=== PATIENT | female | born 1990 | race Caucasian/White ===

== ENCOUNTER → 2017-07-03 | Outpatient (CLI) | payer BC ==
[~2017-07-03] MED LIST: ACET-1256 PO; METR500T PO; PRENTAB26 PO
[2017-07-03 18:31] LABS: URINE APPEARANCE CLEAR (CLEAR); URINE BILIRUBIN NEG (NEG); URINE COLOR YELLOW; URINE NITRITE NEG (NEG); URINE SPECIFIC GRAVITY 1.012 (1.000-1.030); UROBILINOGEN NEG (NEG)
[2017-07-03 18:42] LABS: MANUAL MICROSCOPIC REQUIRED? NO; REVIEW REQ? NO
== END | disposition home or self-care (01) ==
LOC: C.LABSPEC 17:29
PROVIDERS: ATTEND Obstetrics & Gynecology
DX: Z34.01 Encounter for supervision of normal first pregnancy, first trimester (principal)

== ENCOUNTER → 2017-07-07 | Outpatient (CLI) | payer BC ==
[2017-07-07 17:24] LABS: BASO % 0.2 %; BASO ABS # 0.02 K/uL (0-0.2); COMPLETE YES; EOS % 0.4 %; HEMATOCRIT 39.5 % (37-47); IG% 0.3 %; LYMPH % 28.5 %; LYMPH ABS # 3.04 K/uL (1.2-3.4); MEAN CELL VOLUME 88.8 fL (80-100); MEAN CORPUSCULAR HEMOGLOBIN 31.7 pg (25-34); MEAN CORPUSCULAR HGB CONC 35.7 g/dl (32-36); MEAN PLATELET VOLUME 9.1 fL (7.4-10.4); MONO % 6.8 %; NEUT % 63.8 %; PLATELET COUNT 211 K/uL (130-400); RED BLOOD COUNT 4.45 M/uL (4.2-5.4); WHITE BLOOD COUNT 10.68 K/uL (4.8-10.8)
== END | disposition home or self-care (01) ==
LOC: C.LAB1850 16:21
PROVIDERS: ATTEND Obstetrics & Gynecology
DX: Z34.01 Encounter for supervision of normal first pregnancy, first trimester (principal)

== ENCOUNTER 2017-07-10 08:43 | Day surgery (SDC) | payer BC ==
[~2017-07-10] VITALS: Ht 165.1 cm; Wt 54.5 kg
[~2017-07-10 08:43] MED LIST changes: +LACTATED RINGER'S 1000ML 1,000 ML IV SCH; -METR500T PO
[2017-07-10 09:12] VITALS: BP 109/76; PULSE 90; TEMP 37.1; O2SAT 100; Ht 165.1 cm; Wt 54.5 kg
[2017-07-10] MEDS ORDERED: METR500T PO (09:18)
--- NOTE | 2017-07-10 09:19 | History & Physical Bridge Note ---
H&P Re-Evaluation Bridge Note: I have examined the patient, reviewed the History & Physical and in the interval since the performance of the History & Physical I have noted the following changes of clinical significance: No changes noted
[2017-07-10] MEDS ORDERED: DOXYCYCLINE HYCLATE 100 MG CAP PO ONE (09:41)
[2017-07-10] MEDS ORDERED: DOXYCYCLINE HYCLATE 100 MG CAP PO SCH (10:00)
[2017-07-10] MEDS ORDERED: ONDANSETRON INJ 2 MG/ML 2 ML VIAL ONE (10:11)
[2017-07-10] MEDS ORDERED: LIDOCAINE HCL 2% 2 ML VIAL (20MG/ML) ONE (10:11)
[2017-07-10] MEDS ORDERED: DEXAMETHASONE SOD INJ 4 MG/ML VIAL ONE (10:11)
[2017-07-10] MEDS ORDERED: PROPOFOL IV EMULSION 10 MG/ML 20 ML VIAL IV ONE (10:11)
[2017-07-10] MEDS ORDERED: FENTANYL CITRATE INJ 50 MCG/1 ML 2 ML VIAL ONE (10:11)
[2017-07-10] MEDS ORDERED: MIDAZOLAM HCL 1 MG/ML 2ML VIAL ONE (10:12)
[2017-07-10] MEDS ORDERED: ONDANSETRON INJ 2 MG/ML 2 ML VIAL IV PRN ×2 (11:15→11:30)
[2017-07-10] MEDS ORDERED: EpHEDrine SULFATE INJ 50 MG/ML AMP IV PRN (11:15)
[2017-07-10] MEDS ORDERED: ATROPINE SULFATE 0.1 MG/ML 5ML SYR IV PRN (11:15)
[2017-07-10] MEDS ORDERED: FENTANYL CITRATE INJ 50 MCG/1 ML 2 ML VIAL IV PRN (11:15)
[2017-07-10] MEDS ORDERED: SODIUM CHLORIDE 0.9% 1000ML 1,000 ML IV SCH (11:27)
[2017-07-10] MEDS ORDERED: PROMETHAZINE HCL INJ 25 MG in SODIUM CHLORIDE 0.9% 50ML 50 ML IV PRN (11:30)
[2017-07-10] MEDS ORDERED: KETOROLAC TROMETHAMINE 30 MG/ML VIAL IV. PRN (11:30)
[2017-07-10] MEDS ORDERED: OXYCODONE/ACETAMINOPHEN 5-325 TAB PO PRN ×2 (11:30)
[2017-07-10] MEDS ORDERED: DOXYCYCLINE HYCLATE 100 MG CAP PO STA (11:31)
--- NOTE | 2017-07-10 11:31 | [facility] Post Operative Brief Note ---
Immediate Operative Summary Operative Date Jul 10, 2017. Pre-Operative Diagnosis Missed Post-Operative Diagnosis Missed Procedure(s) Performed Ultrasound guided Dilation and Evacuation Surgeon Dr. Dayami Stevens Postbed Stitcher Surgeon(s) None Estimated Blood Loss 200ml Findings Ultrasound shows IUP with no FHT. Upon completion of procedure, uterus empty. Specimens Specimen A. Products of Conception Drains bladder emptied prior to procedure Anesthesia general Complication(s) None Disposition Recovery Room / PACU
--- NOTE | 2017-07-10 11:38 | DIAGNOSTIC IMAGING REPORT ---
INTRAOPERATIVE PELVIC ULTRASOUND FOR GUIDANCE CLINICAL HISTORY: Missed COMPARISON STUDY: None. FINDINGS: Intraoperative pelvic ultrasound guidance provided for a dilatation and evacuation. Initial images demonstrate an intrauterine gestation. No heart rate was identified. Postoperative images demonstrate evacuation of the intrauterine gestation. IMPRESSION: Intraoperative pelvic guidance provided for dilatation and evacuation.. Electronically signed by: Eliu Concepcion M.D. 07/10/2017 11:36 AM Dictated Date/Time: 07/10/2017 11:34 AM
--- NOTE | 2017-07-10 11:46 | Discharge Instructions ---
Discharge Instructions Date of Service Jul 10, 2017. Visit Reason for Visit: Missed Discharge Discharge Diagnosis / Problem: missed Discharge Goals Goal(s): Therapeutic intervention Activity Recommendations Activity Limitations: per Instructions/Follow-up section Anesthesia . Post Anesthesia Instructions: If you have had General Anesthesia or IV Sedation: * Do not drive today. * Resume driving when surgeon permits. * Do not make important decisions or sign legal documents today. * Call surgeon for: 1. Temperature elevations greater than 101 degrees F. 2. Uncontrollable pain. 3. Excessive bleeding. 4. Persistent nausea and vomiting. 5. Medication intolerance (nausea, vomiting or rash). * For nausea and vomiting use only clear liquids such as: tea, soda, bouillon until nausea subsides, then gradually increase diet as tolerated. * If you have any concerns or questions, call your surgeon's office. If physician is unavailable and it is an emergency, call 911 or go to the nearest emergency room. . Instructions / Follow-Up Instructions / Follow-Up ACTIVITY RECOMMENDATIONS: * Avoid tampons, douching, hot tubs, pools, and intercourse until bleeding has stopped. * May shower as usual. * No strenuous activity for 24-48 hours. After 24-48 hours, you may do anything you feel like doing (driving and sports are okay). SPECIAL CARE INSTRUCTIONS: Special Diet: * Mild nausea may occur in the immediate post-operative period. * Take clear liquids such as tea, cola or bouillon until all nausea has subsided; you may then resume your normal diet. Special Care: * Light bleeding and vaginal spotting can last from a few days to 3-4 weeks. Call your doctor if bleeding becomes heavier than the heaviest part of your period. * Check your temperature twice a day for one week. If it goes above 100.4 degrees Fahrenheit (38.0 Celsius), notify your doctor. * Call your doctor's office for an appointment for 6 weeks after your surgery. FOLLOW-UP VISIT: Call your doctor's office for an appointment for 6 weeks after your surgery. Diet Recommendations Recommended Home Diet: resume previous diet Procedures Procedures Performed: Ultrasound guided Dilation and Evacuation Pending Studies Studies pending at discharge: no Medical Emergencies . Who to Call and When: Medical Emergencies: If at any time you feel your situation is an emergency, please call 911 immediately. . Non-Emergent Contact Non-Emergency issues call your: Primary Care Provider, Workshop Manager . . "Provider Documentation" section prepared by Dayami Stevens. .
--- NOTE | 2017-07-10 11:57 | OPERATIVE REPORT ---
DATE OF OPERATION: 07/10/2017 PREOPERATIVE DIAGNOSIS: Missed . POSTOPERATIVE DIAGNOSIS: Same. PROCEDURE PERFORMED: Ultrasound guided dilation and evacuation. SURGEON: Dayami Stevens DO REPORTING SPECIALIST: None. ESTIMATED BLOOD LOSS: 200 mL. FINDINGS: Ultrasound shows intrauterine with no heart tones. Upon completion of procedure, the uterus was empty by ultrasound. SPECIMENS: Products of conception. DRAINS: Bladder emptied prior to procedure. ANESTHESIA: General. COMPLICATIONS: None. DISPOSITION: Stable and good to recovery area. INDICATIONS FOR PROCEDURE: The patient is a 26-year-old G1, P0, who presented to the office for her new OB visit. She had had slight brown spotting, but no gregorio vaginal bleeding on ultrasound at her initial visit. She was by dates approximately 10 weeks, but ultrasound showed an 8-week intrauterine with no heart activity. She elected to undergo dilation and evacuation. DESCRIPTION OF PROCEDURE: The patient was seen in the preoperative holding area, where risks, benefits, and alternatives to surgery were reviewed. She elected to proceed with surgery. 100 mg of p.o. doxycycline was given preoperatively as antibiotic prophylaxis per ACOG guideline. She was then taken to the operating room. General anesthesia was introduced. She was prepared and draped in the usual sterile fashion in the dorsal lithotomy position with feet in candy cane stirrups. Timeout was confirmed. Bladder was drained. Weighted speculum was placed in the vagina. The cervix was visualized and the anterior lip was grasped with single tooth tenaculum. Ultrasound showed the above findings. The cervix was then gently dilated with dilators to admit a 10-mm suction cannula. The evacuation of the contents of the uterus was then performed using suction at 60 mmHg. Multiple passes were made. A gentle pass with a sharp curette was performed and subsequent ultrasound revealed no remaining products of conception in the intrauterine cavity. Excellent hemostasis was observed. All instruments were removed from the vagina. The patient was taken to the postoperative recovery area. She was given 200 mg of doxycycline postoperatively for continued antibiotic prophylaxis and received a prescription for 500 mg of Flagyl p.o. b.i.d. x5 days. She will also receive RhoGAM in the postoperative area as she is Rh negative status. The patient tolerated the procedure well and went to the recovery area in stable and good condition. I attest to the content of the Intraoperative Record and any orders documented therein. Any exceptions are noted below. MTDD
--- NOTE | 2017-07-10 12:10 | Anesthesiology Progress Note ---
Anesthesia Post Op Note Date & Time Jul 10, 2017 at 12:09 Vital Signs Pain Intensity: 2 Vital Signs Past 12 Hours Date Time Temp Pulse Resp B/P (MAP) Pulse Ox O2 Delivery O2 Flow Rate FiO2 07/10/17 12:00 68 15 104/68 99 Room Air 07/10/17 11:50 67 17 105/73 99 Room Air 07/10/17 11:40 69 16 109/80 100 Oxymask 10 07/10/17 11:30 36.0 90 16 112/71 100 Oxymask 10 07/10/17 09:12 37.1 90 18 109/76 (87) 100 Room Air Notes Mental Status: alert / awake / arousable, participated in evaluation Pt Amnestic to Procedure: Yes Nausea / Vomiting: adequately controlled Pain: adequately controlled Airway Patency, RR, SpO2: stable & adequate BP & HR: stable & adequate Hydration State: stable & adequate Anesthetic Complications: no major complications apparent
[2017-07-10 12:18] VITALS: BP 103/69; PULSE 69; TEMP 37; O2SAT 100
[2017-07-10] MEDS ORDERED: METHYLERGONOVINE MALEATE 0.2 MG/ML AMP ONE (12:39)
[2017-07-10 12:48] VITALS: BP 101/60; PULSE 70; TEMP 36.8; O2SAT 100
[2017-07-10 13:18] VITALS: BP 113/63; PULSE 70; TEMP 36.8; O2SAT 100
== END 2017-07-10 13:24 | disposition home or self-care (01) ==
LOC: C.ACU 08:43
PROVIDERS: ATTEND Obstetrics & Gynecology
DX: O02.1 Missed abortion (principal)

== ENCOUNTER → 2017-11-16 | Outpatient (CLI) | payer BC ==
[~2017-11-16] MED LIST changes: -LACTATED RINGER'S 1000ML 1,000 ML IV SCH
== END | disposition home or self-care (01) ==
LOC: C.LABSPEC 17:38
PROVIDERS: ATTEND Obstetrics & Gynecology
DX: O09.291 Supervision of pregnancy with other poor reproductive or obstetric history, first trimester (principal)

== ENCOUNTER → 2017-11-23 | Outpatient (CLI) | payer BC ==
[2017-11-23 09:43] LABS: BASO % 0.1 %; BASO ABS # 0.01 K/uL (0-0.2); EOS % 0.3 %; EOS ABS # 0.02 K/uL (0-0.5); HEMATOCRIT 38.8 % (37-47); IG# 0.01 K/uL (0.00-0.02); LYMPH % 27.8 %; LYMPH ABS # 2.11 K/uL (1.2-3.4); MEAN CELL VOLUME 88.2 fL (80-100); MEAN CORPUSCULAR HEMOGLOBIN 31.8 pg (25-34); MEAN CORPUSCULAR HGB CONC 36.1 g/dl (32-36); MEAN PLATELET VOLUME 9.1 fL (7.4-10.4); MONO % 6.1 %; MONO ABS # 0.46 K/uL (0.11-0.59); NEUT % 65.6 %; NEUT ABS # 4.97 K/uL (1.4-6.5); PLATELET COUNT 214 K/uL (130-400); RED CELL DISTRIBUTION WIDTH CV 12.6 % (11.5-14.5); RED CELL DISTRIBUTION WIDTH SD 40.6 fL (36.4-46.3); WHITE BLOOD COUNT 7.58 K/uL (4.8-10.8)
== END | disposition home or self-care (01) ==
LOC: C.LAB1850 08:53
PROVIDERS: ATTEND Obstetrics & Gynecology
DX: O09.291 Supervision of pregnancy with other poor reproductive or obstetric history, first trimester (principal)

== ENCOUNTER → 2018-01-18 | Outpatient (CLI) | payer BC | END | disposition home or self-care (01) | LOC: C.LAB1850 16:13 | PROVIDERS: ATTEND Obstetrics & Gynecology | DX: O09.292 Supervision of pregnancy with other poor reproductive or obstetric history, second trimester (principal); Z3A.00 Weeks of gestation of pregnancy not specified ==

== ENCOUNTER → 2018-01-30 | Outpatient (CLI) | payer BC | END | disposition home or self-care (01) | LOC: C.LAB1850 07:46 | PROVIDERS: ATTEND Obstetrics & Gynecology | DX: O28.1 Abnormal biochemical finding on antenatal screening of mother (principal); Z3A.00 Weeks of gestation of pregnancy not specified ==

== ENCOUNTER → 2018-04-15 | Outpatient (CLI) | payer BC | END | disposition home or self-care (01) | LOC: C.LAB1850 09:30 | PROVIDERS: ATTEND Obstetrics & Gynecology | DX: O09.292 Supervision of pregnancy with other poor reproductive or obstetric history, second trimester (principal) ==

== ENCOUNTER 2022-10-02 07:37 | Inpatient (IN) ==
[2022-10-02] MEDS ORDERED: DIPHTHERIA/TETANUS/PERTUSSIS 0.5mL SYR/VIAL (Age 7+yrs) IM ONE ×2 (07:55→18:02)
[2022-10-02] MEDS ORDERED: bisacodyL 10 MG SUPP PR PRN ×2 (07:55→18:02)
[2022-10-02] MEDS ORDERED: ACETAMINOPHEN 325 MG TAB PO PRN ×2 (07:55→18:02)
[2022-10-02] MEDS ORDERED: HYDROCORTISONE ACETATE 25 MG SUPP PR PRN ×2 (07:55→18:02)
[2022-10-02] MEDS ORDERED: OXYTOCIN 30 UNITS/500 ML BAG IV PRN ×4 (07:55→18:02)
[2022-10-02] MEDS ORDERED: IBUPROFEN 600 MG TAB PO PRN (07:55)
[2022-10-02] MEDS ORDERED: LIDOCAINE 1% LOCAL 20 ML VIAL INFIL PRN (07:55)
[2022-10-02] MEDS ORDERED: BENZOCAINE 20% AER SPR 82.5 GM CAN EXT PRN ×2 (07:55→18:02)
[2022-10-02] MEDS ORDERED: DOCUSATE SODIUM 100 MG CAP PO SCH (08:00)
[2022-10-02] MEDS ORDERED: PRENATAL VITAMIN 1 TAB PO SCH (08:00)
--- NOTE | 2022-10-02 08:09 | History & Physical Report ---
Date of Service October 02, 2022 Assessment & Plan (1) Polyhydramnios affecting : (2) Elective induction of labor planned: Plan: 32 y/o female here for IOL d/t polyhydramnios. GBS+, RI, B neg. +FM. Few contractions, no loss of fluid, no bleeding. No calf pain. Epidural when/if desired. Start pit when indicated. c/b previous ppx pre-eclampsia, on ASA, monitor BPs Last pap 02/2020 No STD hx Admission and Anticipated Discharge Date Admission Date: October 02, 2022 History of Present Illness Chief Complaint: IOL poly Primary Care Provider: Nasir Martinez MD 32 y/o female here for IOL d/t polyhydramnios. GBS+, RI, B neg. +FM. Few contractions, no loss of fluid, no bleeding. No calf pain. c/b previous ppx pre-eclampsia, on ASA Last pap 02/2020 No STD hx Allergies Allergy/AdvReac Type Severity Reaction Status Date / Time No Known Drug Allergies Allergy NONE Verified 10/02/22 09:53 Home Medications Medication Instructions Recorded Confirmed Type docusate sodium 100 mg capsule 100 mg PO DAILY 02/28/22 10/02/22 History (Colace) acetone (urine) test (Ketone Urine #50 ea 03/03/22 10/01/22 Rx Test strips) blood sugar diagnostic (OneTouch #150 ea 03/03/22 10/01/22 Rx Verio test strips) blood-glucose meter (OneTouch #1 ea 03/03/22 10/01/22 Rx Verio Flex Meter) lancets 33 gauge (OneTouch Delica #150 ea 03/03/22 10/01/22 Rx Plus Lancet) aspirin 81 mg capsule 81 mg PO DAILY 10/02/22 10/02/22 History prenat.vits,amelia,[id number] 1 tab PO DAILY 10/02/22 10/02/22 History Patient History Medical History (Updated 10/02/22 @ 08:42 by Luna Adams MD) Anemia Encounter for visit GERD (gastroesophageal reflux disease) Gestational diabetes mellitus (GDM), Oral contraceptive prescribed Pre-eclampsia, mild, Preeclampsia in period Surgical History History of wisdom tooth extraction Hx of dilation and curettage Family History Mother Depression Endometriosis Grandfather (Paternal) Diabetes Grandmother Breast cancer Social History Smoking Status: Never smoker Second Hand Exposure: No; Hx Alcohol Use: No Hx Substance Use: No Preferred Language: Japanese Communication Ability: Effective Formula Room Worker Required: No Beliefs That Will Affect Care: Mosque Mosque Beliefs: Nondenominational marital status: marital status details: Andrew (35) [phone] Current Living Situation: Spouse and Family Current Living Situation Comment: Son 4 yo current occupational status: employed current occupation: Mainframe Programmer. Feels Safe at Home: Yes Assistive Devices: Glasses Review of Systems All systems reviewed & are unremarkable except as noted in HPI & below Physical Exam Constitutional: WD/WN, vitals as above Respiratory: normal respiratory effort, lungs clear to auscultation Cardiovascular: RRR, no murmur, no edema Extremities: no calf tenderness Psychiatric: A+Ox3, euthymic affect Genitourinary: OB Exam Abdomen: + vertex, + estimated weight (6-7 pounds) and + irregular contractions Manual OB Exam: + cervical dilation 4 cm, + cervical effacement 70% and + station -2 OB Exam Monitor Tracing: + external FHT monitor used, + external uterine monitor used, + category I and + normal FHT variability Results & Data ([facility]) Vital Signs (Past 12 Hours) Vital Signs Temp Pulse Resp BP 10/02/22 08:01 102 H 113/77 10/02/22 07:58 16 10/02/22 07:58 36.8 C 16 Supervising Physician Co-Signing Physician Notes Resident Physician Supervision Note: I interviewed and examined the patient. Discussed with Dr. Adams and agree with findings and plan as documented in the note. Any exceptions or clarifications are listed here: [None] Documented By: Didi Barnes MD, FACOG Resident Activity Tracking Resident Involvement: Resident Care Provided Care Provided: OB Delivery
[2022-10-02] MEDS ORDERED: PENICILLIN G POTASSIUM 6 MU in DEXTROSE 5% 250 ML IV STA (08:29)
[2022-10-02 08:46] LABS: Hemoglobin 12.9 g/dl (12.0-16.0); Mean Corpuscular Hgb Conc 35.8 g/dL (32.0-36.0); Mean Corpuscular Volume 92.1 fL (80.0-100.0); Mean Platelet Volume 9.7 fL (9.4-12.3); Platelet Count 152 K/uL (130-400); RDW Coefficient of Variation 12.7 % (11.5-14.5); RDW Standard Deviation 42.2 fL (36.4-46.3); Red Blood Count 3.91 M/uL (3.93-5.22); White Blood Count 11.19 K/ul (4.8-10.8)
[2022-10-02] MEDS: LACTATED RINGER'S 1,000 ML IV PRN ×2 (09:00→13:45)
[2022-10-02] MEDS: PENICILLIN G POTASSIUM 3 MU in DEXTROSE 5% 100 ML IV PRN ×2 (13:11→17:32)
[2022-10-02] MEDS ORDERED: ePHEDrine sulfate 50 MG/ML AMP ONE (13:21)
[2022-10-02] MEDS ORDERED: fentaNYL 2MCG/ML ROPIVACAINE 1.25MG/ML 100 ML BAG EPI ONE (13:22)
[2022-10-02] MEDS ORDERED: BUPIVACAINE 0.25% 30 ML VIAL ONE (13:22)
[2022-10-02] MEDS ORDERED: fentaNYL citrate 100 MCG/2 ML VIAL ONE (13:22)
[2022-10-02] MEDS ORDERED: LIDOCAINE 2%/EPINEPHRINE 1:200,000 20 ML SDV ONE (13:22)
[2022-10-02] MEDS ORDERED: SODIUM CHLORIDE 0.9% INJ 10 ML VIAL ONE (13:22)
[2022-10-02] MEDS ORDERED: ePHEDrine sulfate 50 MG/ML AMP IV PRN (13:35)
[2022-10-02] MEDS ORDERED: fentaNYL 2MCG/ML ROPIVACAINE 1.25MG/ML 100 ML BAG EPI PRN (13:35)
[2022-10-02] MEDS ORDERED: NALOXONE HCL 0.4 MG/1 ML VIAL/CARP IV PRN (13:35)
[2022-10-02] MEDS ORDERED: ONDANSETRON INJ 2 MG/ML 2 ML VIAL IV PRN (13:35)
[2022-10-02] MEDS ORDERED: NALBUPHINE HCL INJ 10 MG/ML AMP IV PRN (13:35)
[2022-10-02] MEDS ORDERED: diphenhydrAMINE 50 MG/ML VIAL IV PRN (13:35)
[2022-10-02] MEDS ORDERED: NALOXONE HCL 1 MG in SODIUM CHLORIDE 0.9% 1000ML 1,000 ML IV PRN (13:35)
--- NOTE | 2022-10-02 13:35 | Anesthesiology Consultation ---
Date of Service October 02, 2022 Assessment & Plan ASA ASA2 Proposed Anesthesia Anesthesia Type: Labor Epidural Risk / Benefits Reviewed With: PT / POA / Parent / Guardian, Accepts Plan and Informed Consent Obtained History Height/Weight Height: 5 ft 5 in Weight: 65.771 kg Allergies Allergy/AdvReac Type Severity Reaction Status Date / Time No Known Drug Allergies Allergy NONE Verified 10/02/22 09:53 Medications Home Medications Medication Instructions Recorded Confirmed Last Taken docusate sodium 100 mg capsule 100 mg PO DAILY 02/28/22 10/02/22 10/02/22 (Colace) acetone (urine) test (Ketone Urine #50 ea 03/03/22 10/01/22 Unknown Test strips) blood sugar diagnostic (OneTouch #150 ea 03/03/22 10/01/22 Unknown Verio test strips) blood-glucose meter (OneTouch #1 ea 03/03/22 10/01/22 Unknown Verio Flex Meter) lancets 33 gauge (OneTouch Delica #150 ea 03/03/22 10/01/22 Unknown Plus Lancet) aspirin 81 mg capsule 81 mg PO DAILY 10/02/22 10/02/22 10/02/22 prenat.vits,amelia,[id number] 1 tab PO DAILY 10/02/22 10/02/22 10/02/22 Active Medications Generic Name Dose Route Start Last Admin Trade Name Freq PRN Reason Stop Dose Admin Docusate Sodium 100 mg 10/02/22 08:00 10/02/22 11:53 Docusate Sodium 100 Mg Cap PO 11/01/22 07:59 Not Given DAILY@, [facility] Lactated Ringer's 1,000 mls @ 125 mls/hr 10/02/22 07:55 10/02/22 13:15 Lr IV 10/04/22 07:54 999 mls/hr .Q8H PRN Infusion L&D Protocol Protocol Penicillin G Potassium 3 mu/ 106 mls @ 100 mls/hr 10/02/22 10:55 10/02/22 13:11 Dextrose IV 10/12/22 10:54 100 mls/hr Q4H PRN Administration GBS(+) Until Delivery Oxytocin 30 units in 500 mls @ 9 mls/hr 10/02/22 08:01 10/02/22 12:07 Pitocin IV 10/04/22 08:00 0.54 units/hr .Q24H PRN 9 mls/hr Labor Induction/Augmentation Titration Protocol 0.54 UNITS/HR Prenat Multivit/[place]/Iron/Folic Ac 1 tab 10/02/22 08:00 10/02/22 11:53 Vitamin 1 Tab PO 11/01/22 07:59 Not Given DAILY@08 FROYLAN Ropivacaine 100 ml 10/02/22 13:35 10/02/22 14:27 Fentanyl 2mcg/Ml Ropivacaine 1.25mg/Ml 100 Ml Bag EPI 10/03/22 13:34 100 ml PRN PRN Administration Pain R/T Labor Protocol Past Medical History Medical History Anemia Encounter for visit GERD (gastroesophageal reflux disease) Gestational diabetes mellitus (GDM), Oral contraceptive prescribed Pre-eclampsia, mild, Preeclampsia in period Exercise / Class Metabolic Activity II 4-5 Yardwork/Stairs/Walk up hill Past Family History Family History Mother Depression Endometriosis Grandfather (Paternal) Diabetes Grandmother Breast cancer maternal great GM Past Surgical History Surgical History History of wisdom tooth extraction Hx of dilation and curettage Past Anesthesia History No Hx of Anesthesia Complications and No Family Hx of Anesthesia Complications History of PONV No Hx of PONV and No Hx of Motion Sickness Social History Smoking Status: Never smoker Hx Alcohol Use: No Hx Substance Use: No Review of Systems denies fever/cough/ colds/ chest pain/ SOB/ CHAYA denies CHAYA Physical Exam Vital Signs Last Vital Signs Temp 36.9 C 10/02/22 13:40 Pulse 90 10/02/22 14:51 Resp 18 10/02/22 13:40 BP 108/69 10/02/22 14:51 Pulse Ox 97 10/02/22 14:47 ENMT Mouth: no TMJ abnormality and no dentition abnormality Thyromental Distance: > or= 3.5 Finger Breadths Mallampati Class: II Neck neck extension not limited Respiratory normal respiratory effort; no respiratory distress Auscultation: lungs clear to auscultation bilaterally Cardiovascular Rate/Rhythm: regular rate and regular rhythm Neurologic moves all extremities Psychiatric Orientation: alert and oriented x 3 Testing Laboratory Results 10/02/22 08:26 10/02/22 10:16 POC Glucose 108 H
--- NOTE | 2022-10-02 18:42 | Anesthesiology Progress Note ---
Date of Service October 02, 2022 Anesthesia Post Procedure Vital Signs Vital Signs: Temp Pulse Resp BP Pulse Ox 10/02/22 18:20 18 10/02/22 18:05 18 10/02/22 17:50 16 10/02/22 18:36 93 H 120/72 10/02/22 18:21 96 H 117/71 10/02/22 17:30 16 10/02/22 17:30 16 10/02/22 17:10 18 10/02/22 17:10 18 10/02/22 18:06 82 118/67 10/02/22 17:52 101 H 131/64 10/02/22 17:47 106 H 98 10/02/22 17:42 92 H 98 10/02/22 17:37 77 99 10/02/22 17:36 106 H 117/78 10/02/22 17:32 93 H 99 10/02/22 17:27 83 99 10/02/22 17:22 99 10/02/22 17:22 90 10/02/22 17:22 85 117/70 10/02/22 17:17 83 99 10/02/22 17:04 18 10/02/22 17:04 18 10/02/22 17:12 91 H 99 10/02/22 17:07 100 10/02/22 17:07 89 10/02/22 17:07 90 125/75 10/02/22 17:02 89 100 10/02/22 16:57 96 H 100 10/02/22 16:40 16 10/02/22 16:40 16 10/02/22 16:52 99 10/02/22 16:52 77 10/02/22 16:52 75 104/64 10/02/22 16:47 81 99 10/02/22 16:40 16 10/02/22 16:40 16 10/02/22 16:42 75 99 10/02/22 16:37 86 99 10/02/22 15:40 16 10/02/22 15:40 16 10/02/22 16:36 79 109/62 10/02/22 16:10 16 10/02/22 16:10 16 10/02/22 16:32 80 99 10/02/22 16:27 78 99 10/02/22 16:22 73 100/58 L 99 10/02/22 16:17 79 100 10/02/22 16:12 81 98 10/02/22 16:07 81 98 10/02/22 16:06 85 120/76 10/02/22 16:02 83 100 10/02/22 15:57 77 99 10/02/22 15:52 77 98 10/02/22 15:53 73 118/77 10/02/22 15:47 72 98 10/02/22 15:42 76 98 10/02/22 15:37 73 97 10/02/22 15:36 72 110/72 10/02/22 15:32 74 97 10/02/22 15:27 75 98 10/02/22 15:22 98 10/02/22 15:22 71 10/02/22 15:22 69 113/76 10/02/22 15:00 16 10/02/22 15:00 36.9 C 16 10/02/22 15:21 80 113/78 10/02/22 15:17 83 98 10/02/22 15:10 16 10/02/22 15:10 16 10/02/22 14:40 18 10/02/22 14:40 18 10/02/22 14:10 18 10/02/22 14:10 18 10/02/22 15:12 83 98 10/02/22 15:08 85 125/80 10/02/22 15:07 79 99 10/02/22 15:02 84 99 10/02/22 14:57 96 H 98 10/02/22 14:52 85 99 10/02/22 14:51 90 108/69 10/02/22 14:47 97 10/02/22 14:47 84 10/02/22 14:47 110 H 114/74 10/02/22 14:42 89 98 10/02/22 14:41 88 105/66 10/02/22 14:37 82 98 10/02/22 14:35 84 112/65 10/02/22 14:32 107 H 98 10/02/22 14:33 103 H 108/71 10/02/22 14:31 86 105/63 10/02/22 14:29 91 H 106/64 10/02/22 14:27 95 H 97 10/02/22 14:26 91 H 100/61 10/02/22 14:24 98 H 111/68 10/02/22 14:23 95 H 111/69 10/02/22 14:22 93 H 98 10/02/22 14:19 106 H 130/77 10/02/22 14:17 97 H 98 10/02/22 14:12 100 H 98 10/02/22 14:07 103 H 98 10/02/22 14:02 83 98 10/02/22 13:57 89 98 10/02/22 13:52 89 97 10/02/22 13:10 18 10/02/22 13:10 18 10/02/22 13:47 83 98 10/02/22 13:42 88 99 10/02/22 13:40 18 10/02/22 13:40 36.9 C 18 10/02/22 13:37 84 99 10/02/22 13:32 98 H 100 10/02/22 13:27 89 99 10/02/22 13:22 93 H 98 10/02/22 13:17 88 99 10/02/22 13:16 90 133/89 10/02/22 13:07 18 10/02/22 13:07 18 10/02/22 12:00 16 10/02/22 12:00 16 10/02/22 12:08 88 109/72 10/02/22 11:17 36.9 C 86 16 118/79 10/02/22 10:16 91 H 16 121/87 10/02/22 09:16 88 16 114/78 10/02/22 08:01 102 H 113/77 10/02/22 07:58 16 10/02/22 07:58 36.8 C 16 Transfer of Care Handoff Completed per policy Notes Mental Status: alert / awake / arousable and participated in evaluation Patient Amnestic to Procedure: Yes Nausea / Vomiting: adequately controlled Pain: adequately controlled Airway Patency, RR, SpO2: stable & adequate BP & HR: stable & adequate Hydration State: stable & adequate Anesthetic Complications: no major complications apparent and Pt Satisfied with anesthetic care
--- NOTE | 2022-10-02 20:01 | Delivery Summary ---
Vaginal Delivery Summary Date of Service October 02, 2022 Vaginal Delivery Summary and 1st Degree LAC Patient is a 32-year-old 2 para 10 01 female EDC of 10/05/2022 who presented for induction of labor because of hydramnios at term. Pitocin augmentation of her contractions was begun and membranes were then ruptured for clear fluid. She received effective epidural analgesia. She progressed to full dilation and delivered spontaneously over intact perineum a viable male in vertex presentation. The was vigorous and crying and moving all 4 limbs. After 1 minute the cord was clamped and cut. Cord blood was obtained, and while doing so the placenta delivered spontaneously. It was intact with a three-vessel cord. First-degree perineal laceration was repaired with 3-0 chromic. Bilateral superficial labial tears were not bleeding and therefore not repaired. bleeding was controlled with dilute Pitocin and fundal massage. Estimated blood loss was 300 cc. Mother and were doing well after delivery. [facility] [place]aginal Delivery Charge Delivery Type Details: and 1st Degree LAC
[2022-10-02] MEDS: DOCUSATE SODIUM 100 MG CAP PO SCH (22:12)
[2022-10-03] MEDS: IBUPROFEN 600 MG TAB PO PRN ×3 (02:25→14:45)
--- NOTE | 2022-10-03 07:16 | Obstetrical Progress Note ---
Date of Service <Lnua Adams MD - Last Filed: 10/03/22 08:42> October 03, 2022 Assessment & Plan <Luna Adams MD - Last Filed: 10/03/22 08:42> (1) Polyhydramnios affecting : (2) Elective induction of labor planned: (3) care following vaginal delivery: 32 y/o female here for IOL d/t polyhydramnios now PPD1. GBS+ treated during labor, RI, B neg. Tolerating PO. Encourage ambulation. Satisfactory post progess. c/b previous ppx pre-eclampsia, on ASA, monitor BPs Last pap 02/2020 No STD hx <Didi Barnes MD, FACOG - Last Filed: 10/03/22 09:11> (1) Polyhydramnios affecting : (2) Elective induction of labor planned: (3) care following vaginal delivery: Subjective <Luna Adams MD - Last Filed: 10/03/22 08:42> Ambulation: ambulating normally Voiding: no voiding problems Passing Gas:: Yes Diet Tolerance:: regular diet Lochia:: Small Feeding Type:: breast feeding Physical Exam <Luna Adams MD - Last Filed: 10/03/22 08:42> Constitutional WD/WN, vitals as above Respiratory normal respiratory effort, lungs clear to auscultation Cardiovascular RRR, no murmur, no edema Extremities: no calf tenderness Psychiatric A+Ox3, euthymic affect Genitourinary OB Exam Abdomen: + fundal height (@ the level of the umbilicus) Fundus: + firm Results & Data ([facility]) <Luna Adams MD - Last Filed: 10/03/22 08:42> Vital Signs (Past 12 Hours) Vital Signs Temp Pulse Pulse Resp BP BP Pulse Ox 10/03/22 03:13 36.6 C 79 18 101/66 98 10/02/22 23:03 36.9 C 88 18 100/64 97 10/02/22 20:45 37.2 C 94 H 20 106/72 97 10/02/22 19:50 36.8 C 18 10/02/22 19:20 18 10/02/22 20:06 99 H 114/65 10/02/22 19:52 114 H 114/66 10/02/22 19:21 93 H 116/71 O2 Del Method 10/03/22 03:13 Room Air 10/02/22 23:03 Room Air 10/02/22 20:45 Room Air 10/02/22 19:50 10/02/22 19:20 10/02/22 20:06 10/02/22 19:52 10/02/22 19:21 <Didi Barnes MD, FACOG - Last Filed: 10/03/22 09:11> Co-Signing Physician Notes Resident Physician Supervision Note: I interviewed and examined the patient. Discussed with Dr. Adams and agree with findings and plan as documented in the note. Any exceptions or clarifications are listed here: [None] Documented By: Didi Barnes MD, FACOG Resident Activity Tracking <Luna Adams MD - Last Filed: 10/03/22 08:42> Resident Involvement: Resident Care Provided Care Provided: OB Delivery
[2022-10-03] MEDS ORDERED: PRENATAL VITAMIN 1 TAB PO SCH (08:00)
[2022-10-03] MEDS: DOCUSATE SODIUM 100 MG CAP PO SCH (08:41)
[2022-10-03] MEDS ORDERED: bisacodyL 5 MG TABEC PO SCH ×2 (20:00)
--- NOTE | 2022-10-11 10:17 | Coding Query ---
CODING QUERY To promote full compliance with coding requirements relating to patient care, provider participation is requested in all cases of measuring machine operator uncertainty. Please assist us with the question(s) below: Coding Question(s): please document weeks of gestation Physician's Response(s): Thank you Marni Aranda Principal Diagnosis: "that condition established after study, to be chiefly responsible for occasioning the admission of the patient to the hospital for care." Co-Existing Principal Diagnosis: "when two or more diagnoses equally meet the criteria for principal diagnosis as determined by the circumstances of admission, diagnostic work up, and/or therapy provided, and the Alphabetic Index, Tabular List, or another coding guideline does not provide sequencing direction, any one of the diagnoses may be sequenced first." "When the physician has documented what appears to be a current diagnosis in the body of the record, but has not included the diagnosis in the final diagnostic statement, the physician should be asked whether the diagnosis should be added." (Source [facility] 2 QTR90. p3-4) [id number]
--- NOTE | 2022-10-13 08:49 | Coding Query ---
CODING QUERY To promote full compliance with coding requirements relating to patient care, provider participation is requested in all cases of coffin maker uncertainty. Please assist us with the question(s) below: Coding Question(s): Please document weeks of gestation 39 4/7 weeks Physician's Response(s): polyhydramnios affecting at term Thank you Marni Aranda Principal Diagnosis: "that condition established after study, to be chiefly responsible for occasioning the admission of the patient to the hospital for care." Co-Existing Principal Diagnosis: "when two or more diagnoses equally meet the criteria for principal diagnosis as determined by the circumstances of admission, diagnostic work up, and/or therapy provided, and the Alphabetic Index, Tabular List, or another coding guideline does not provide sequencing direction, any one of the diagnoses may be sequenced first." "When the physician has documented what appears to be a current diagnosis in the body of the record, but has not included the diagnosis in the final diagnostic statement, the physician should be asked whether the diagnosis should be added." (Source [facility] 2 QTR90. p3-4) [id number]
== END 2022-10-03 19:25 | disposition home or self-care (01) | DRG 807 ==
LOC: 4S1 07:37 → 4E2 20:35